=== PATIENT | female | born 1975 | race Two or more races ===

== ENCOUNTER 2018-12-07 21:59 | Inpatient (IN) | payer OTHER ==
[~2018-12-07] VITALS: Ht 162.6 cm; Wt 67.7 kg
[2018-12-07 22:05] VITALS: BP 112/92
--- NOTE | 2018-12-07 22:05 | NUR ---
ED Nurse Note: Pt arrived ED from home, c/o left chest pain today, 04/24. Pt is A/O X 4. HR 133/mint. Bp 112/92. waitng for orders.
[2018-12-07] MEDS ORDERED: TRAMADOL HCL50 MG ORAL (22:08)
[2018-12-07] MEDS ORDERED: ESTRACE1 MG ORAL (22:08)
[2018-12-07] MEDS ORDERED: Isovue-370 150ml vial INJ PRN (22:30)
[2018-12-07] MEDS ORDERED: Morphine Sulfate 4mg/ml Inj (IV USE ONLY) IVP ONE (22:30)
--- NOTE | 2018-12-07 22:35 | NUR ---
ED Nurse Note: Blood and urine sample collected and sent to Lab.
[2018-12-07 23:01] LABS: BASOPHILS % (AUTO) 0.8 % (0.0-2.0); EOSINOPHILS % (AUTO) 0.2 % (0.0-3.0); HEMOGLOBIN 14.9 G/DL (12.0-16.0); LYMPHOCYTES % (AUTO) 38.6 % (20.0-45.0); MEAN CORPUSCULAR VOLUME 90 FL (80-99); MONOCYTES % (AUTO) 3.8 % (1.0-10.0); NEUTROPHILS % (AUTO) 56.6 % (45.0-75.0); PLATELET COUNT 262 K/UL (150-450); RED BLOOD COUNT 4.87 M/UL (4.20-5.40); RED CELL DISTRIBUTION WIDTH 11.9 % (11.6-14.8); WHITE BLOOD COUNT 10.3 K/UL (4.8-10.8)
--- NOTE | 2018-12-07 23:01 | NUR ---
ED Nurse Note: Pain meds given as ordered.
[2018-12-07 23:17] LABS: ANION GAP 11 mmol/L (5-15); BLOOD UREA NITROGEN 12 mg/dL (7-18); CALCIUM 9.8 MG/DL (8.5-10.1); CARBON DIOXIDE 25 MMOL/L (21-32); CHLORIDE 105 MMOL/L (98-107); CREATININE 0.9 MG/DL (0.55-1.30); POTASSIUM 3.3 MMOL/L (3.5-5.1); SODIUM 141 MMOL/L (136-145)
[2018-12-07 23:30] LABS: ALANINE AMINOTRANSFERASE 11 U/L (12-78); ALBUMIN 3.7 G/DL (3.4-5.0); ALBUMIN/GLOBULIN RATIO 0.9 (1.0-2.7); ALKALINE PHOSPHATASE 101 U/L (46-116); ASPARTATE AMINO TRANSFERASE 14 U/L (15-37); BILIRUBIN,TOTAL 0.4 MG/DL (0.2-1.0); CKMB 1.7 NG/ML (0.0-3.6); CREATINE KINASE 67 U/L (26-308)
[2018-12-07] MEDS ORDERED: Enoxaparin 60mg Inj SUBQ ONE (23:30)
[2018-12-08] MEDS ORDERED: Heparin 25,000u/D5W 500ml 500 ML IV SCH ×3 (01:15→05:30)
[2018-12-08] MEDS ORDERED: Heparin 5000 units/ml inj IV ONE ×2 (01:15→05:00)
--- NOTE | 2018-12-08 01:25 | NUR ---
ED Nurse Note: Started Heperin drip at 12 uint /Kg /Hr( 14.152ml/hr). co-signed by charge nurse. Family at bed side.
--- NOTE | 2018-12-08 02:14 | Emergency Room Report ---
History of Present Illness General Chief Complaint: Chest Pain Source: Patient Present Illness HPI Patient presents with complaints of chest pain or short of breath Patient reports that she is on estrogen therapy Reports that several days ago she was having palpitations Patient's partner here reports that the patient has had a fast heart rate for over the past several days Tonight the pain associated with the palpitation was more significant patient also felt more short of breath and presents to the emergency room She becomes more short of breath with exertion denies any vomiting or diarrhea denies any recent travel and eyes any calf pain or swelling Allergies: Coded Allergies: No Known Allergies (Unverified , 12/07/18) Patient History Past Medical History: see triage record Pertinent Family History: none Last Menstrual Period: hysterectomy 2012 Now: No Reviewed Nursing Documentation: PMH: Agreed; PSxH: Agreed Nursing Documentation-PMH Past Medical History: No History, Except For Review of Systems All Other Systems: negative except mentioned in HPI Physical Exam Vital Signs Date Time Temp Pulse Resp B/P (MAP) Pulse Ox O2 Delivery O2 Flow Rate FiO2 12/07/18 22:03 98.1 136 18 134/91 96 Room Air Sp02 EP Interpretation: reviewed, normal General Appearance: mild distress - Mildly uncomfortable Head: normocephalic, atraumatic Eyes: bilateral eye PERRL, bilateral eye EOMI ENT: hearing grossly normal, normal pharynx Neck: supple Respiratory: lungs clear, no respiratory distress, no retraction Cardiovascular #1: tachycardia Gastrointestinal: non tender, soft Genitourinary: no CVA tenderness Musculoskeletal: normal inspection Neurologic: alert, oriented x3, responsive Skin: normal color, no rash Lymphatic: no adenopathy Procedures Critical Care Time Critical Care Time 50 minutes for multiple re-evaluations critical diagnosis including pulmonary embolism with concern for respiratory failure not including any procedural time Medical Decision Making Diagnostic Impression: Primary Impression: Pulmonary emboli ER Course Patient is a fairly complex patient with multiple differential to consideration including but not limited to cardiac cardiopulmonary and vascular emergencies Patient's blood work shows concerning findings of elevated troponin Given the patient's initial presentation history and findings I had a very high suspicion for pulmonary embolism patient was provided with Lovenox treatment dose initially CT imaging does reveal bilateral pulmonary emboli And therefore the patient is initiated on heparin and heparin drip Patient continues to saturate well on room air however is placed on oxygenation And at this time requires ICU admission Labs Test 12/07/18 22:40 12/07/18 22:47 Urine HCG, Qualitative Negative (NEGATIVE) Urine Opiates Screen Negative (NEGATIVE) Urine Barbiturates Screen Negative (NEGATIVE) Phencyclidine (PCP) Screen Negative (NEGATIVE) Urine Amphetamines Screen Negative (NEGATIVE) Urine Benzodiazepines Screen Negative (NEGATIVE) Urine Cocaine Screen Negative (NEGATIVE) Urine Marijuana (THC) Screen Positive (NEGATIVE) White Blood Count 10.3 K/UL (4.8-10.8) Red Blood Count 4.87 M/UL (4.20-5.40) Hemoglobin 14.9 G/DL (12.0-16.0) Hematocrit 44.0 % (37.0-47.0) Mean Corpuscular Volume 90 FL (80-99) Mean Corpuscular Hemoglobin 30.5 PG (27.0-31.0) Mean Corpuscular Hemoglobin Concent 33.8 G/DL (32.0-36.0) Red Cell Distribution Width 11.9 % (11.6-14.8) Platelet Count 262 K/UL (150-450) Mean Platelet Volume 6.4 FL (6.5-10.1) Neutrophils (%) (Auto) 56.6 % (45.0-75.0) Lymphocytes (%) (Auto) 38.6 % (20.0-45.0) Monocytes (%) (Auto) 3.8 % (1.0-10.0) Eosinophils (%) (Auto) 0.2 % (0.0-3.0) Basophils (%) (Auto) 0.8 % (0.0-2.0) Prothrombin Time 10.9 SEC (9.30-11.50) Prothromb Time International Ratio 1.0 (0.9-1.1) Activated Partial Thromboplast Time 27 SEC (23-33) D-Dimer 18.87 mg/L FEU (0.00-0.49) Sodium Level 141 MMOL/L (136-145) Potassium Level 3.3 MMOL/L (3.5-5.1) Chloride Level 105 MMOL/L (98-107) Carbon Dioxide Level 25 MMOL/L (21-32) Anion Gap 11 mmol/L (5-15) Blood Urea Nitrogen 12 mg/dL (7-18) Creatinine 0.9 MG/DL (0.55-1.30) Estimat Glomerular Filtration Rate > 60 mL/min (>60) Glucose Level 125 MG/DL (74-106) Calcium Level 9.8 MG/DL (8.5-10.1) Total Bilirubin 0.4 MG/DL (0.2-1.0) Aspartate Amino Transf (AST/SGOT) 14 U/L (15-37) Alanine Aminotransferase (ALT/SGPT) 11 U/L (12-78) Alkaline Phosphatase 101 U/L (46-116) Total Creatine Kinase 67 U/L (26-308) Creatine Kinase MB 1.7 NG/ML (0.0-3.6) Creatine Kinase MB Relative Index 2.5 Troponin I 0.512 ng/mL (0.000-0.056) Pro-B-Type Natriuretic Peptide 56 pg/mL (0-125) Total Protein 7.8 G/DL (6.4-8.2) Albumin 3.7 G/DL (3.4-5.0) Globulin 4.1 g/dL Albumin/Globulin Ratio 0.9 (1.0-2.7) Lipase 130 U/L (73-393) EKG Diagnostic Results Rate: tachycardiac Rhythm: other ST Segments: no acute changes Rhythm Strip Diag. Results EP Interpretation: yes Rate: 110 Rhythm: no PVC's, no ectopy, other - Sinus tach Chest X-Ray Diagnostic Results Chest X-Ray Diagnostic Results : Chest X-Ray Ordered: Yes # of Views/Limited/Complete: 1 View Indication: Chest Pain EP Interpretation: Yes Interpretation: no consolidation, no effusion, no pneumothorax Impression: No acute disease Electronically Signed by: Wu Fletcher DO CT/MRI/US Diagnostic Results CT/MRI/US Diagnostic Results : Impression CTA chest: Multifocal acute pulmonary emboli lodged within the proximal lobar and segmental pulmonary arteries no evidence of heart strain Last Vital Signs Date Time Temp Pulse Resp B/P (MAP) Pulse Ox O2 Delivery O2 Flow Rate FiO2 12/07/18 22:05 98.1 132 18 112/92 98 Room Air Status: improved Disposition: ADMITTED INPATIENT Condition: Critical Referrals: NON PHYSICIAN (PCP) Wu Fletcher DO Dec 08, 2018 02:14
--- NOTE | 2018-12-08 03:00 | NUR ---
NURSE NOTES: Patient received from ROLL REPAIRER. Patient is alert and oriented to date, time, purpose and place. Patient is ambulatory bit on bedrest for now. Patient has been started on a heparin gtt in ER at 12 unit/kg/hr. Patients HR 112 ST, 112/79, Spo2 97$ while on 2 L NC and is afebrile. Patient does state minor chest pain of 4/10 but tolerable at the moment. R AC 20G, L hand 20G and on heparin gtt. No respiratory distress at this time. Patient was educated for signs and symptoms, possible outcomes, and plan of care. Will continue to monitor.
--- NOTE | 2018-12-08 03:15 | NUR ---
TRANSFER TO FLOOR: Patient transferred to ICU/246-[id number] as ordered . Report given to Yair/RN, Charge. Belongings sent with Pt and rechecked with RN. Pt is A/O X 4.
--- NOTE | 2018-12-08 04:00 | NUR ---
NURSE NOTES: Primary MD called to provide admissions orders. Patient remains stable, awake and oriented. Vitals stable. NAD, no respiratory distress,.
[2018-12-08] MEDS ORDERED: Morphine Sulfate 2mg/ml Inj(IV/IM USE ONLY) IVP PRN (04:30)
[2018-12-08] MEDS ORDERED: Docusate 100mg cap ORAL PRN (05:00)
--- NOTE | 2018-12-08 06:00 | NUR ---
NURSE NOTES: Patients vitals remains stable, currently sleeping. No respiratory distress observed. Awaiting PTT results.
[2018-12-08 06:25] LABS: BASOPHILS % (AUTO) 1.5 % (0.0-2.0); EOSINOPHILS % (AUTO) 0.4 % (0.0-3.0); HEMATOCRIT 40.3 % (37.0-47.0); HEMOGLOBIN 13.5 G/DL (12.0-16.0); LYMPHOCYTES % (AUTO) 44.7 % (20.0-45.0); MEAN CORPUSCULAR VOLUME 92 FL (80-99); MONOCYTES % (AUTO) 4.1 % (1.0-10.0); NEUTROPHILS % (AUTO) 49.3 % (45.0-75.0); PLATELET COUNT 236 K/UL (150-450); RED CELL DISTRIBUTION WIDTH 12.2 % (11.6-14.8); WHITE BLOOD COUNT 10.3 K/UL (4.8-10.8)
[2018-12-08 06:55] LABS: ALANINE AMINOTRANSFERASE 10 U/L (12-78); ALBUMIN 3.3 G/DL (3.4-5.0); ALBUMIN/GLOBULIN RATIO 0.9 (1.0-2.7); ALKALINE PHOSPHATASE 93 U/L (46-116); ANION GAP 12 mmol/L (5-15); ASPARTATE AMINO TRANSFERASE 14 U/L (15-37); BILIRUBIN,TOTAL 0.3 MG/DL (0.2-1.0); BLOOD UREA NITROGEN 11 mg/dL (7-18); CALCIUM 9.1 MG/DL (8.5-10.1); CARBON DIOXIDE 25 MMOL/L (21-32); CHLORIDE 104 MMOL/L (98-107); CREATININE 0.8 MG/DL (0.55-1.30); POTASSIUM 3.5 MMOL/L (3.5-5.1); SODIUM 141 MMOL/L (136-145)
--- NOTE | 2018-12-08 07:15 | NUR ---
NURSE NOTES: RECEIVED PATIENT FROM Eamon FAITH RN. PATIENT IS LYING IN BED, AWAKE, ALERT AND ORIENTED. COMPLAINTS OF PAIN. HOOKED TO WET MACHINE CUTTER. ON 2L NC. NO SIGN OF RESPI OR CARDIO DISTRESS OF THE MOMENT. IVS ON L AC G20 AND L HAND G20 WITH HEPARIN DRIP AT 12"U'/KG/HR FOLLOWING HOSPITAL PROTOCOL. TIMED APTT IN AM 0400. CALL LIGHT WITHIN REACH. BED AT LOWEST POSITION. SIDE RAILS UP. WILL CONTINUE TO MONITOR.
--- NOTE | 2018-12-08 09:15 | NUR ---
NURSE NOTES: STILL ON HEPARIN DRIP AT 12"U"/KG/HR FOLLOWING HOSPITAL PROTOCOL. FAMILY MEMBER SEEN AT THE BEDSIDE. NO SIGNS OF DISTRESS. WILL CONTINUE TO MONITOR.
[2018-12-08] MEDS: Morphine Sulfate 4mg/ml Inj (IV USE ONLY) IVP PRN ×2 (09:16→18:37)
--- NOTE | 2018-12-08 11:00 | NUR ---
NURSE NOTES: SEEN AND EXAMINED BY DR SCHMIDT WITH NEW ORDER. NO SIGNS OF DISTRESS. WILL CONTINUE TO MONITOR.
--- NOTE | 2018-12-08 11:12 | History & Physical ---
History and Physical History & Physicial HP dictated # [id number] Berto Abraham MD Dec 08, 2018 11:12
--- NOTE | 2018-12-08 12:05 | NUR ---
NURSE NOTES: Patient is comfortably talking with two visitors and is eating lunch. Patient stated pain is at 3 out of 10. No pain medication requested. Bed at its lowest position and call light within reach. Will continue to monitor.
--- NOTE | 2018-12-08 14:00 | NUR ---
NURSE NOTES: Patient has two visitors and is comfortable at this time. Will continue to monitor.
--- NOTE | 2018-12-08 14:27 | Pulmonolgy Critical Care Note ---
Critical Care - Asmt/Plan Assessment/Plan: Pulmonary CCM Consultation HP Patient is a 43 year old woman who presents complaining of chest pain and short of breath Patient reports that she is on estrogen therapy She has had palpitations intermittently for several days. On the day of admission her chest pain was associated with the palpitations was more significant and she felt more short of breath She becomes more short of breath with exertion, denies any vomiting or diarrhea denies any recent travel denies any calf pain or swelling Allergies: No Known Allergies Past Medical History: negative aside from above Past Surgical History: hysterectomy 2011 All Other Systems: negative except mentioned in HPI Physical Exam Vital Signs noted Date Time Temp Pulse Resp B/P (MAP) Pulse Ox O2 Delivery O2 Flow Rate FiO2 12/07/18 22:03 98.1 136 18 134/91 96 Room Air General Appearance: mild distress - Mildly uncomfortable Head: normocephalic, atraumatic Eyes: bilateral eye PERRL, bilateral eye EOMI ENT: hearing grossly normal, normal pharynx Neck: supple Respiratory: lungs clear, no respiratory distress, no retraction Cardiovascular: HS1, HS2, RRR, tachycardia Gastrointestinal: non tender, soft Genitourinary: no CVA tenderness Musculoskeletal: normal inspection Neurologic: alert, oriented x3, responsive Skin: normal color, no rash Lymphatic: no adenopathy Impression: Pulmonary emboli Elevated Troponin Previous Hysterectomy Plan: Admit ICU Anticoagulation O2 PRN Trend labs Echocardiogram BNP Labs Test 12/07/18 22:40 12/07/18 22:47 Urine HCG, Qualitative Negative (NEGATIVE) Urine Opiates Screen Negative (NEGATIVE) Urine Barbiturates Screen Negative (NEGATIVE) Phencyclidine (PCP) Screen Negative (NEGATIVE) Urine Amphetamines Screen Negative (NEGATIVE) Urine Benzodiazepines Screen Negative (NEGATIVE) Urine Cocaine Screen Negative (NEGATIVE) Urine Marijuana (THC) Screen Positive (NEGATIVE) White Blood Count 10.3 K/UL (4.8-10.8) Red Blood Count 4.87 M/UL (4.20-5.40) Hemoglobin 14.9 G/DL (12.0-16.0) Hematocrit 44.0 % (37.0-47.0) Mean Corpuscular Volume 90 FL (80-99) Mean Corpuscular Hemoglobin 30.5 PG (27.0-31.0) Mean Corpuscular Hemoglobin Concent 33.8 G/DL (32.0-36.0) Red Cell Distribution Width 11.9 % (11.6-14.8) Platelet Count 262 K/UL (150-450) Mean Platelet Volume 6.4 FL (6.5-10.1) Neutrophils (%) (Auto) 56.6 % (45.0-75.0) Lymphocytes (%) (Auto) 38.6 % (20.0-45.0) Monocytes (%) (Auto) 3.8 % (1.0-10.0) Eosinophils (%) (Auto) 0.2 % (0.0-3.0) Basophils (%) (Auto) 0.8 % (0.0-2.0) Prothrombin Time 10.9 SEC (9.30-11.50) Prothromb Time International Ratio 1.0 (0.9-1.1) Activated Partial Thromboplast Time 27 SEC (23-33) D-Dimer 18.87 mg/L FEU (0.00-0.49) Sodium Level 141 MMOL/L (136-145) Potassium Level 3.3 MMOL/L (3.5-5.1) Chloride Level 105 MMOL/L (98-107) Carbon Dioxide Level 25 MMOL/L (21-32) Anion Gap 11 mmol/L (5-15) Blood Urea Nitrogen 12 mg/dL (7-18) Creatinine 0.9 MG/DL (0.55-1.30) Estimat Glomerular Filtration Rate > 60 mL/min (>60) Glucose Level 125 MG/DL (74-106) Calcium Level 9.8 MG/DL (8.5-10.1) Total Bilirubin 0.4 MG/DL (0.2-1.0) Aspartate Amino Transf (AST/SGOT) 14 U/L (15-37) Alanine Aminotransferase (ALT/SGPT) 11 U/L (12-78) Alkaline Phosphatase 101 U/L (46-116) Total Creatine Kinase 67 U/L (26-308) Creatine Kinase MB 1.7 NG/ML (0.0-3.6) Creatine Kinase MB Relative Index 2.5 Troponin I 0.512 ng/mL (0.000-0.056) Pro-B-Type Natriuretic Peptide 56 pg/mL (0-125) Total Protein 7.8 G/DL (6.4-8.2) Albumin 3.7 G/DL (3.4-5.0) Globulin 4.1 g/dL Albumin/Globulin Ratio 0.9 (1.0-2.7) Lipase 130 U/L (73-393) EKG: Rate: tachycardiac Rhythm: other ST Segments: no acute changes Chest X-Ray: no consolidation, no effusion, no pneumothorax CTA Chest: Multifocal acute pulmonary emboli lodged within the proximal lobar and segmental pulmonary arteries no evidence of heart strain Critical Care - Objective Last 24 Hour Vital Signs Date Time Temp Pulse Resp B/P (MAP) Pulse Ox O2 Delivery O2 Flow Rate FiO2 12/08/18 12:00 Nasal Cannula 2.0 12/08/18 08:00 Nasal Cannula 2.0 12/08/18 08:00 98 12/08/18 04:00 2.0 12/08/18 04:00 Nasal Cannula 2.0 12/08/18 04:00 103 12/08/18 03:26 Nasal Cannula 2.0 12/08/18 03:15 98.1 112 18 113/89 98 Nasal Cannula 2.0 12/07/18 22:05 98.1 132 18 112/92 98 Room Air 12/07/18 22:05 133 18 Room Air 12/07/18 22:03 98.1 136 18 134/91 96 Room Air Critical Care - Subjective ROS Limited/Unobtainable: No Condition: stable IV Access: peripheral EKG Rhythm: Sinus Rhythm I&O: Intake and Output 12/07/18 12/08/18 19:00 07:00 Intake Total 1092.340 ml Balance 1092.340 ml Intake Oral 550 ml IV Total 542.340 ml # Voids 2 Jose Raul Jones MD Dec 08, 2018 14:27
--- NOTE | 2018-12-08 16:05 | NUR ---
*-* INSURANCE *-* CLINICALS HAVE BEEN FAXED TO: [facility] PLEASE FAX THE REVIEW/CLINICAL FX: [phone]
--- NOTE | 2018-12-08 16:06 | NUR ---
NURSE NOTES: Patient states pain is at a 7 out of 10. Medication will be given as ordered. Will monitor.
--- NOTE | 2018-12-08 16:19 | NUR ---
CASE MANAGEMENT:REVIEW 43 YR OLD FEMALE PRESENTED TO ER CC: CHEST PAIN RADIATING TO BACK SI: ACUTE BILATERAL PULMONARY EMBOLI 98.0 136 18 134/91 96% ON RA TROPONIN(+) 0.512 D-DIMER+18.87 IS:500CC NS BOLUS IV MORPHINE X1 IV ZOFRAN X1 LOVENOX X1 HEPARIN GTT CTA CHEST CXR : TO ICU INTERQUAL CRITERIA MET
--- NOTE | 2018-12-08 18:15 | History and Physical Report ---
DATE OF ADMISSION: 12/08/2018 CHIEF COMPLAINT: Chest pain, shortness of breath, and palpitations. HISTORY OF PRESENT ILLNESS: This is a 43-year-old very pleasant female. She started having chest pains and palpitations about 4 days ago, this was associated also with shortness of breath. The symptoms would come and go and the patient will usually have it a few times a day. Yesterday, she was at her girlfriend's house when she started having severe chest pain and palpitations. She had a watch, which checks her pulse and it was in 150s. She was also very short of breath. Eventually, she was given here by the girlfriend to [facility] and had a CT scan of chest, reportedly it showed bilateral pulmonary emboli. The patient was started on IV heparin and was admitted to intensive care unit. Currently, the patient is feeling better. PAST MEDICAL HISTORY: Includes history of hysterectomy, but also the patient had ovaries removed and I am not sure what the reason was, but since then, she has been taking hormones. She had also craniotomy for malformation and also recent shoulder surgery. SOCIAL HISTORY: The patient is homosexual and has no sexual activity except with her girlfriend. She used to smoke half-a-pack a day for many years, but for the past year and half, she is using nicotine vapors. No history of alcohol abuse. She lives in a monogamous relationship with her girlfriend. ALLERGIES: No known drug allergies. REVIEW OF SYSTEMS: As above. PHYSICAL EXAMINATION: GENERAL: The patient is a pleasant female, in no acute distress. VITAL SIGNS: Blood pressure is 113/89, pulse is 112, respiratory 18, and temperature 98.1. HEENT: [place] conjunctivae. Anicteric sclerae. NECK: Supple. LUNGS: Clear to auscultation. HEART: S1, S2 without murmurs or rubs. ABDOMEN: Soft and nontender. EXTREMITIES: No cyanosis or edema. LABORATORY FINDINGS: [place] [address], hematocrit 40.3, hemoglobin is 13.5, and platelets 236,000. The chemistry panel shows a serum sodium of 141, potassium 3.5, chloride 104, BUN is 11, creatinine is 0.8. Troponin initially is 0.51 and the repeat is 0.348. ASSESSMENT: This is a 43-year-old female who was admitted with chest pain, shortness of breath, palpitations, and diagnosis of pulmonary embolism. She has slightly elevated troponin. At this time, I doubt that she has underlying coronary artery disease, but she is a smoker, so that needs to be ruled out as well. PLAN: The patient was started on IV heparin, this will be continued. The patient will be seen by Dr. Lorenzo in Pulmonary consultation and Dr. House for Cardiology. Eventually, she will need to be on oral medication after oral anticoagulants. Case was discussed with the patient extensively regarding the cause, the treatment, and prognosis and also talked to the RN. The patient will have ultrasound of lower extremities to rule out DVT in legs. Berto Abraham M.D. DR: KEVIN JOB#: [id number] CC:
--- NOTE | 2018-12-08 19:15 | Diagnostic Imaging Report ---
Indication: Chest pain Technique: Continuous helical transaxial imaging of the chest was obtained from the thoracic inlet to the upper abdomen during rapid intravenous contrast administration. Arterial phase of enhancement obtained. Coronal 2-D reformats were also obtained and maximum intensity projection images in multiple planes. Study obtained in a Siemens sensation [address] Automatic Exposure Control was utilized. Total Dose length Product (DLP): [address] Dose Index Volume (CTDIvol): 12.6, 88.4, 17.3 mGy Comparison: None Findings: There is good opacification of the pulmonary artery. There are multiple filling defects present within branches of the pulmonary artery. On the left side there is a saddle embolus within the main pulmonary artery trunk extending into both upper and lower lobe branches and some of the segmental branches. On the right similarly there is a clot within the lower lobe branch extending into segmental branches. There is also embolus extending into the upper lobe branch on the right. There is no evidence of right heart enlargement or strain. There is no reflux contrast into the IVC. The aorta appears normal. The lungs are clear. The visualized part of the upper abdomen shows a subcutaneous port which is within the peritoneal cavity anteriorly. The nature of this is not known. IMPRESSION: Extensive bilateral pulmonary emboli. No CT evidence of right heart strain. [facility] has communicated the preliminary results to the Emergency Department at 01:06, 12/07/18. Their findings are largely concordant with this report. Critical value communication The CT scanner at [facility] is accredited by the [employer] and the scans are performed using dose optimization techniques as appropriate to a performed exam including Automatic Exposure control.
--- NOTE | 2018-12-08 19:15 | Diagnostic Imaging Report ---
Indication: Dyspnea Comparison: None A single view chest radiograph was obtained. Findings: Cardiomediastinal appearance is within normal limits for age. FIRMWARE ARCHITECT shunt noted and projected over the right side of the chest. The lungs are clear. Pulmonary vascularity is appropriate. The diaphragmatic contour is smooth and costophrenic angles are sharp. No pleural effusions are identified. The bones are unremarkable. Impression: No acute findings
--- NOTE | 2018-12-08 19:16 | Diagnostic Imaging Report ---
APPROVED REPORT CPT Code: 03660 Past History Pulmonary Embolism BILATERAL: Imaging reveals a patent deep venous system bilaterally. There is no evidence of thrombus within the common femoral, superficial femoral, popliteal or tibial segments. The greater saphenous veins are within normal limits. Doppler indicates normal spontaneous flow within these segments.
--- NOTE | 2018-12-08 19:17 | Cardiology Report ---
APPROVED REPORT EKG Measurement Heart [id number] Sinus tachycardia Nonspecific T wave abnormality Abnormal ECG
--- NOTE | 2018-12-08 20:00 | NUR ---
NURSE NOTES: RECEIVED PATIENT FROM DELIA RUTHERFORD RN. PATIENT IS LYING IN BED, AWAKE, ALERT AND ORIENTED. COMPLAINTS OF PAIN. HOOKED TO MACHINERY RIGGER. ON 2L NC. NO SIGN OF RESPI OR CARDIO DISTRESS OF THE MOMENT. IVS ON L AC G20 AND L HAND G20 WITH HEPARIN DRIP AT 12"U'/KG/HR FOLLOWING HOSPITAL PROTOCOL. TIMED APTT IN AM 0400. CALL LIGHT WITHIN REACH. BED AT LOWEST POSITION. SIDE RAILS UP. WILL CONTINUE TO MONITOR.
--- NOTE | 2018-12-08 20:54 | NUR ---
NURSE NOTES: Called and left message for Dr. Abraham for prn order for zofran. Pt feeling dizziness and nausea, placed back on 02. Current O2 saturation @ 99%
--- NOTE | 2018-12-08 22:00 | NUR ---
NURSE NOTES: STILL ON HEPARIN DRIP AT 12"U"/KG/HR FOLLOWING HOSPITAL PROTOCOL. FAMILY MEMBER SEEN AT THE BEDSIDE. NO SIGNS OF DISTRESS. WILL CONTINUE TO MONITOR. PATIENT VOMITING, FEELS NAUSEATED ZOFRAN ALREADY GIVEN. PATIENT DOES REMAINS AWAKE AND ALERT.
[2018-12-09] VITALS (17 sets, daily range): BP systolic 90–131; BP diastolic 53–83
--- NOTE | 2018-12-09 | NUR ---
NURSE NOTES: PATIENT REMAINS ALERT AND ORIENTED, NO RESPIRATORY DISTRESS NOTED. PATIENT STATED CHEST PAIN RATED AT 2/10, STATES THAT SHE CAN HOLD OFF WITH PAIN MEDICATIONS FOR NOW PAIN IS TOLERABLE.
--- NOTE | 2018-12-09 04:00 | NUR ---
NURSE NOTES: Received pt and report from TOMEKA Lehman. Pt's resting in bed, alert x4. Denies any other concerns/complaints at this time. Heparin running at 12units/kg/hr, pending PTT. Will continue to monitor.
[2018-12-09] MEDS ORDERED: Heparin 5000 units/ml inj IV ONE (05:30)
--- NOTE | 2018-12-09 05:30 | NUR ---
NURSE NOTES: PharmD called, Heparin rate increased to 16unit/kg/hr, and 5000units bolus. Will repeat PTT in 6 hrs. Pt's resting in bed comfortably, no s/s bleeding. Will continue to monitor.
[2018-12-09] MEDS: Heparin 25,000u/D5W 500ml 500 ML IV SCH ×2 (05:35→11:30)
--- NOTE | 2018-12-09 07:13 | NUR ---
HAND-OFF: Report given to TOMEKA Joaquin.
--- NOTE | 2018-12-09 07:30 | NUR ---
NURSE NOTES: Received the patient from TOMEKA Daniel. Patient is awake, aox4, resting in bed. Denies SOB, or pain at this time. On 2L O2 via NC, O2 sat 99%. No acute distress noted. SR noted on the monitor. Left hand 20G and Right AC 20G IV intact and patent, running heparin drip at 16 units/kg/hr. No s/sx of active bleeding. Bed in lowest position, locked, side rails upx2. Call light within reach. Will continue to monitor.
--- NOTE | 2018-12-09 08:15 | NUR ---
CASE MANAGEMENT:REVIEW 12/09/18 SI: EXTENSIVE ACUTE BILATERAL PULMONARY EMBOLI 98.1 112 18 113/89 98% ON 2L/NC TROPONIN(+) 0.058 APT+46 IS: HEPARIN GTT 16U/KG/HR PROTONIX PO Q12 IV MORPHINE Q3HRS PRN : ICU STATUS
--- NOTE | 2018-12-09 09:10 | NUR ---
NURSE NOTES: Patient had breakfast in bed. 2D echo ongoing.
--- NOTE | 2018-12-09 11:30 | NUR ---
NURSE NOTES: Patient on heparin drip at 16 units/kg/hr, no s/sx of bleeding noted. PTT drawn, pending result.
--- NOTE | 2018-12-09 12:25 | Pulmonolgy Critical Care Note ---
Critical Care - Asmt/Plan Problems: (1) Pulmonary emboli Assessment/Plan: ASSESSMENT: B PE, likely provoked 2/2 recent shoulder surgery (3 wks prior) + OCP usage H/O endometriosis S/P JAXSON-BSO Chiari malformation S/P VPS Recent shoulder surgery PLAN: D/C IVUH Start Xarelto 15 PO BID x 21 days, then 20 PO qDaily Will need outpatient heme F/U, anticipate @ least 3-6 months or A/C Hold off on Hypercoag w/u for now Monitor HH Should have age appropriate malignancy eval Transfer to floor/tele D/W RN and GF Time Spent (Minutes): 30 Notes Reviewed: appraiser art, renal Discussed with: nurses Critical Care - Objective Last 24 Hour Vital Signs Date Time Temp Pulse Resp B/P (MAP) Pulse Ox O2 Delivery O2 Flow Rate FiO2 12/09/18 12:00 97.9 80 14 99/65 (76) 99 12/09/18 12:00 Nasal Cannula 2.0 12/09/18 11:00 88 12 98/53 (68) 100 12/09/18 10:00 81 12 97/61 (73) 99 12/09/18 09:00 81 17 103/69 (80) 99 12/09/18 08:00 68 12/09/18 08:00 Nasal Cannula 2.0 12/09/18 08:00 97.8 60 13 131/83 (99) 100 12/09/18 07:00 68 12 129/64 (85) 98 12/09/18 06:48 Nasal Cannula 2.0 28 12/09/18 06:48 100 Nasal Cannula 2.0 28 12/09/18 04:00 75 12/09/18 04:00 Room Air 12/09/18 00:00 Room Air 12/08/18 20:00 89 12/08/18 20:00 Room Air 12/08/18 16:00 Room Air 12/08/18 16:00 87 Status: awake Condition: improving HEENT: atraumatic, normocephalic Lungs: clear Heart: HR/BP stable Abdomen: soft, non-tender, active bowel sounds Extremities: no C/C/E Blood Sugars: BS controlled Critical Care - Subjective ROS Limited/Unobtainable: Yes ICU Day: 3 Interval Events: Raul AC No CP, no SOB, no FC On RA, HR < 100 TTE without RV strain duplex neg Condition: stable IV Access: peripheral EKG Rhythm: Sinus Rhythm FI02: 28 I&O: Intake and Output 12/08/18 12/09/18 19:00 07:00 Intake Total 485.496 ml 677.762 ml Output Total 300 ml Balance 485.496 ml 377.762 ml Intake Oral 300 ml 500 ml IV Total 185.496 ml 177.762 ml Output Urine Total 300 ml # Voids 2 1 Labs: Laboratory Tests Test 12/08/18 14:40 12/09/18 03:50 12/09/18 11:30 Troponin I 0.100 ng/mL (0.000-0.056) 0.058 ng/mL (0.000-0.056) Activated Partial Thromboplast Time 46 SEC (23-33) H 115 SEC (23-33) H Pro-B-Type Natriuretic Peptide 166 pg/mL (0-125) H Ken Lorenzo MD Dec 09, 2018 12:25
--- NOTE | 2018-12-09 12:45 | NUR ---
NURSE NOTES: Dr. Lorenzo at bedside, patient resting in bed. No distress noted. Off heparin drip, start on xeralto. Okay to transfer to tele per Dr. Lorenzo. Patient's mom at bedside. All questions answered
--- NOTE | 2018-12-09 13:15 | NUR ---
NURSE NOTES: Patient having lunch in bed. heparin drip off. On room air. vss
--- NOTE | 2018-12-09 13:49 | NUR ---
*-* INSURANCE *-* CLINICALS HAVE BEEN FAXED TO: [facility] PLEASE FAX THE REVIEW/CLINICAL FX: [phone]
--- NOTE | 2018-12-09 14:20 | General Progress Note ---
Assessment/Plan Problem List: (1) Pulmonary emboli ICD Codes: I26.99 - Other pulmonary embolism without acute cor pulmonale SNOMED: 76150706 (2) Chest pain ICD Codes: R07.9 - Chest pain, unspecified SNOMED: 42374647 (3) Elevated troponin ICD Codes: R74.8 - Abnormal levels of other serum enzymes SNOMED: 035998929, 213906562, 907167214 Assessment/Plan switch to Eliquis Out of ICU pain meds Discussed with dr Lorenzo Subjective Allergies: Coded Allergies: No Known Allergies (Unverified , 12/07/18) Subjective still with CP Objective Last 24 Hour Vital Signs Date Time Temp Pulse Resp B/P (MAP) Pulse Ox O2 Delivery O2 Flow Rate FiO2 12/09/18 13:00 85 18 101/71 (81) 97 12/09/18 12:00 97.9 80 14 99/65 (76) 99 12/09/18 12:00 Nasal Cannula 2.0 12/09/18 11:00 88 12 98/53 (68) 100 12/09/18 10:00 81 12 97/61 (73) 99 12/09/18 09:00 81 17 103/69 (80) 99 12/09/18 08:00 68 12/09/18 08:00 Nasal Cannula 2.0 12/09/18 08:00 97.8 60 13 131/83 (99) 100 12/09/18 07:00 68 12 129/64 (85) 98 12/09/18 06:48 Nasal Cannula 2.0 28 12/09/18 06:48 100 Nasal Cannula 2.0 28 12/09/18 04:00 75 12/09/18 04:00 Room Air 12/09/18 00:00 Room Air 12/08/18 20:00 89 12/08/18 20:00 Room Air 12/08/18 16:00 Room Air 12/08/18 16:00 87 Intake and Output 12/08/18 12/09/18 19:00 07:00 Intake Total 485.496 ml 677.762 ml Output Total 300 ml Balance 485.496 ml 377.762 ml Intake Oral 300 ml 500 ml IV Total 185.496 ml 177.762 ml Output Urine Total 300 ml # Voids 2 1 Laboratory Tests 12/08/18 14:40: Troponin I 0.100H 12/09/18 03:50: Troponin I 0.058H, Activated Partial Thromboplast Time 46H, Pro-B-Type Natriuretic Peptide 166H 12/09/18 11:30: Activated Partial Thromboplast Time 115H Height (Feet): 5 Height (Inches): 4.00 Weight (Pounds): 141 Cardiovascular: normal rate Respiratory/Chest: lungs clear Berto Abraham MD Dec 09, 2018 14:20
[2018-12-09] MEDS: Eliquis 2.5mg tablet ORAL SCH ×2 (14:25→21:18)
--- NOTE | 2018-12-09 14:37 | Cardiology Report ---
APPROVED REPORT EXAM: Two-dimensional and M-mode echocardiogram with Doppler and color Doppler. INDICATION Shortness of breath M-Mode DIMENSIONS IVSd1.2 (0.7-1.1cm)Left Atrium (MM)2.6 (1.6-4.0cm) LVDd4.0 (3.5-5.6cm)Aortic Root2.0 (2.0-3.7cm) PWd0.8 (0.7-1.1cm)Aortic Cusp Exc.1.8 (1.5-2.0cm) LVDs2.7 (2.5-4.0cm) PWs1.2 cm Normal left ventricular chamber size, systolic function and wall motion. Left ventricular ejection fraction estimated to be 60 %. Mild left ventricular hypertrophy. No evidence of pericardial effusion. All other cardiac chamber sizes are within normal limits. Normal appearing aortic, mitral, pulmonic and tricuspid valves. Mild mitral annulus and aortic root calcification. IVC is normal in size with physiological collapse. A color flow and spectral Doppler study was performed and revealed: No aortic insufficiency. No mitral regurgitation. Normal left ventricular diastolic function. Trace tricuspid regurgitation. Tricuspid systolic velocities suggests peak right ventricular systolic pressure of 11 mmHg. Trace pulmonic regurgitation present.
--- NOTE | 2018-12-09 15:30 | NUR ---
NURSE NOTES: Patient resting in bed comfortably. no acute distress noted.
--- NOTE | 2018-12-09 17:30 | NUR ---
NURSE NOTES: sponge bath given. Patient awake. Denies SOB or pain at this time. VSS.
[2018-12-09] MEDS ORDERED: Xarelto 15mg tab ORAL SCH (18:00)
--- NOTE | 2018-12-09 19:06 | NUR ---
HAND-OFF: Report given to TOMEKA Lehman.
--- NOTE | 2018-12-09 20:00 | NUR ---
NURSE NOTES: Received the patient from TOMEKA Knight. Patient is awake, aox4, resting in bed. Denies SOB, or pain at this time. On 2L O2 via NC, O2 sat 99%. No acute distress noted. SR noted on the monitor. Left hand 20G and Right AC 20G IV intact and patent, is saline locked. No s/sx of active bleeding. Bed in lowest position, locked, side rails upx2. Call light within reach. Will continue to monitor.
--- NOTE | 2018-12-09 21:08 | Cardiology Progress Note ---
Subjective Subjective [id number] Objective Last 24 Hour Vital Signs Date Time Temp Pulse Resp B/P (MAP) Pulse Ox O2 Delivery O2 Flow Rate FiO2 12/09/18 20:00 Room Air 12/09/18 20:00 89 12/09/18 20:00 98.7 81 18 90/59 (69) 98 12/09/18 19:00 99 17 100/63 (75) 97 12/09/18 18:00 86 20 94/57 (69) 96 12/09/18 17:00 98 21 95/67 (76) 97 12/09/18 16:00 Room Air 12/09/18 16:00 102 12/09/18 16:00 98.1 80 19 110/74 (86) 100 12/09/18 15:00 92 18 106/55 (72) 98 12/09/18 14:00 107 25 99/59 (72) 95 12/09/18 13:00 85 18 101/71 (81) 97 12/09/18 12:00 97.9 80 14 99/65 (76) 99 12/09/18 12:00 Nasal Cannula 2.0 12/09/18 12:00 83 12/09/18 11:00 88 12 98/53 (68) 100 12/09/18 10:00 81 12 97/61 (73) 99 12/09/18 09:00 81 17 103/69 (80) 99 12/09/18 08:00 68 12/09/18 08:00 Nasal Cannula 2.0 12/09/18 08:00 97.8 60 13 131/83 (99) 100 12/09/18 07:00 68 12 129/64 (85) 98 12/09/18 06:48 Nasal Cannula 2.0 28 12/09/18 06:48 100 Nasal Cannula 2.0 28 12/09/18 04:00 75 12/09/18 04:00 Room Air 12/09/18 00:00 Room Air Intake and Output 12/08/18 12/09/18 19:00 07:00 Intake Total 485.496 ml 677.762 ml Output Total 300 ml Balance 485.496 ml 377.762 ml Intake Oral 300 ml 500 ml IV Total 185.496 ml 177.762 ml Output Urine Total 300 ml # Voids 2 1 Laboratory Tests Test 12/09/18 03:50 12/09/18 11:30 Activated Partial Thromboplast Time 46 SEC (23-33) H 115 SEC (23-33) H Troponin I 0.058 ng/mL (0.000-0.056) Pro-B-Type Natriuretic Peptide 166 pg/mL (0-125) H Sherman House MD Dec 09, 2018 21:08
[2018-12-09] MEDS: Morphine Sulfate 4mg/ml Inj (IV USE ONLY) IVP PRN (21:18)
--- NOTE | 2018-12-09 22:00 | NUR ---
NURSE NOTES: Dr. House at bedside assessing patient. Patient remains stable at this time. NAD.
[2018-12-10] VITALS (11 sets, daily range): BP systolic 101–125; BP diastolic 63–76
--- NOTE | 2018-12-10 | NUR ---
NURSE NOTES: Patient remains stable, VSS, no new changes.
--- NOTE | 2018-12-10 02:00 | NUR ---
NURSE NOTES: Patient remains sleeping, VS remains stable, NAD, no chest pain right now.
--- NOTE | 2018-12-10 04:00 | NUR ---
NURSE NOTES: Patient remains sleeping, VS remains stable. No complaints of SOB or chest pain. IV lines remains patent and intact.
--- NOTE | 2018-12-10 04:00 | Consultation ---
DATE OF CONSULTATION: 12/09/2018 CARDIOLOGY CONSULTATION CONSULTING PHYSICIAN: Sherman House M.D. REFERRING PHYSICIAN: Berto Abraham M.D. REASON FOR REFERRAL: Tachycardia. HISTORY OF PRESENT ILLNESS: This is a pleasant 43-year-old female who has a history of multiple medical problems as delineated below who had some shortness of breath for about 3 or 4 weeks. About 2 weeks ago, she underwent shoulder surgery and spent some time in bed for 4 to 5 days, although she was not in the bed all time, at times she would get out of bed. Nevertheless, over the past three weeks, she has had increasing episodes of shortness of breath and has had occasional chest pain, but she never really paid attention. On one occasion, she had woken up in the middle of the night with palpitations and shortness of breath. The heart rate was noted to be 150. Anyway, she eventually came to the hospital because of persistent symptoms and was diagnosed with bilateral pulmonary embolism with heart rates and with tachycardia. So, this consultation is requested. Except for the fact that she has been in bed for the past 4 to 5 days, she has had estrogen usage for the past year and a half for having had hysterectomy. Otherwise, no significant other risk factors. Chest pain apparently is better right now. Shortness of breath is better, almost completely gone. She does not have any orthopnea. She did have PND episodes. No dizziness or lightheadedness she has palpitation as noted. PAST MEDICAL HISTORY: 1. Positive for history of keloid malformation, status post PHOTOGRAPHER LITHOGRAPHIC shunting. 2. History of multiple . SOCIAL HISTORY: She does until a few days before her admission and she drinks alcoholic beverages socially. No other drug use. REVIEW OF SYSTEMS: GASTROINTESTINAL: Negative. GENITOURINARY: Negative. PULMONARY: As mentioned in the history of present illness. Now, negative. CONSTITUTIONAL: Negative. NEUROLOGICAL: Negative. PHYSICAL EXAMINATION: GENERAL: Shows to be a young female, in no respiratory distress. NECK: Supple. No jugular venous distention. LUNGS: Clear to auscultation. CARDIAC: Regular rate and rhythm. No heaves, thrills, or gallops noted. ABDOMEN: Soft, nontender. Positive bowel sounds. EXTREMITIES: There is no clubbing, cyanosis, or edema. NEUROLOGICAL: She is awake, alert, responsive, and in no apparent respiratory distress. LABORATORY AND DIAGNOSTIC DATA: White count of 10, hemoglobin 13.5, and a platelet count 236. Her cardiac enzymes, troponin 0.34 and 0.100, 0.058 and proBNP is only 166. Sodium 141, potassium 3.5, chloride 104, bicarb 25, BUN of 12, creatinine 0.8, and glucose of 98. Albumin is 3.3. INR was 1. PTT of 27. D-dimer of 19, almost at the time of admission. Drug screen positive for marijuana. test was negative. Echocardiogram performed today shows ejection fraction 60%. No significant other abnormalities noted on the echocardiogram and venous duplex of the lower extremities patent without any evidence of DVT. Chest x-ray when she came into the hospital was fairly unremarkable. CT angio of the chest showed extensive bilateral pulmonary emboli. No evidence of RV strain being documented. EKG, sinus rhythm, sinus tachycardia at the rate of 112. No ST or T-wave abnormalities being noted. ASSESSMENT AND PLAN: 1. Chest pain secondary to pulmonary embolism. 2. Pulmonary embolism. 3. History of estrogen use recently. 4. History of recent shoulder surgery with positive prolonged bed rest. 5. History of Chiari malformation, status post PHOTOGRAPHER LITHOGRAPHIC shunting. PLAN: Dr. Abraham, this patient was seen in cardiac consultation. The patient is doing relatively well. At the present time, she looks okay. The possible risk factors for pulmonary emboli are likely related to estrogen use as well as possibly related to prolonged bed rest. However, on detailed questioning, she seems to think that the symptoms of chest pain or shortness of breath may be related to her shoulder surgery. Therefore, the use of estrogen may be a higher likelihood of cause. Nevertheless, I am not sure if she needs any other workup for the cause of pulmonary emboli from the and as such, I would consider further evaluation if necessary. Her echocardiogram does not show any evidence of right ventricular failure. She has oral anticoagulants with use of and of note that she does not have any deep venous thrombosis on her lower extremities. could be possible contributing factors. Sherman House M.D. DR: LJ JOB#: [id number] CC:
[2018-12-10 05:51] LABS: ALANINE AMINOTRANSFERASE 10 U/L (12-78); ALBUMIN 2.9 G/DL (3.4-5.0); ALBUMIN/GLOBULIN RATIO 0.8 (1.0-2.7); ALKALINE PHOSPHATASE 86 U/L (46-116); ANION GAP 8 mmol/L (5-15); ASPARTATE AMINO TRANSFERASE 10 U/L (15-37); BILIRUBIN,TOTAL 0.1 MG/DL (0.2-1.0); BLOOD UREA NITROGEN 20 mg/dL (7-18); CALCIUM 8.7 MG/DL (8.5-10.1); CARBON DIOXIDE 29 MMOL/L (21-32); CHLORIDE 105 MMOL/L (98-107); CREATININE 0.9 MG/DL (0.55-1.30); POTASSIUM 3.8 MMOL/L (3.5-5.1); SODIUM 142 MMOL/L (136-145)
--- NOTE | 2018-12-10 06:00 | NUR ---
NURSE NOTES: Patient awake, VS remains stable no form of acute distress at this time, no chest pain now no SOB. Afebrile.
[2018-12-10] MEDS ORDERED: Morphine Sulfate 4mg/ml Inj (IV USE ONLY) IVP PRN (06:50)
--- NOTE | 2018-12-10 07:15 | NUR ---
NURSE NOTES: RECEIVED PATIENT FROM Eamon FAITH RN. PATIENT IS LYING IN BED, AWAKE, ALERT AND ORIENTED. HOOKED TO ENGINE MANAGER. ON ROOM AIR. NO SIGNS OF RESPI OR CARDIO DISTRESS OF THE MOMENT. PATIENT IS AMBULATORY. IV ON L HAND G20, SL. CALL LIGHT WITHIN REACH. BED AT LOWEST POSITION. SIDE RAILS UP. WILL CONTINUE TO MONITOR.
[2018-12-10] MEDS: Eliquis 2.5mg tablet ORAL SCH ×2 (08:06→20:23)
--- NOTE | 2018-12-10 09:46 | Pulmonology Progress Note ---
Assessment/Plan Assessment/Plan ASSESSMENT: B PE, likely provoked 2/2 recent shoulder surgery (3 wks prior) + OCP usage H/O endometriosis S/P JAXSON-BSO Chiari malformation S/P VPS Recent shoulder surgery PLAN: Continue Eliquis Will need outpatient heme F/U, anticipate @ least 3-6 months or A/C Hold off on Hypercoag w/u for now Monitor HH Should have age appropriate malignancy eval as an outpatient Subjective Allergies: Coded Allergies: No Known Allergies (Unverified , 12/07/18) Subjective AFVSS on RA Tx'd to PRECIOUS Less CP/shoulder pain, no SOB, no F/C Switched to Eliquis Objective Last 24 Hour Vital Signs Date Time Temp Pulse Resp B/P (MAP) Pulse Ox O2 Delivery O2 Flow Rate FiO2 12/10/18 08:00 97.5 106 20 104/67 (79) 98 12/10/18 06:00 76 16 121/70 (87) 95 12/10/18 05:00 74 16 125/69 (87) 94 12/10/18 04:00 74 12/10/18 04:00 98.5 81 20 112/76 (88) 94 12/10/18 04:00 Room Air 12/10/18 03:00 77 18 102/63 (76) 94 12/10/18 02:00 83 22 113/70 (84) 96 12/10/18 01:00 75 20 101/66 (78) 94 12/10/18 00:00 Room Air 12/10/18 00:00 97.9 83 17 119/65 (83) 94 12/09/18 23:00 85 18 90/68 (75) 98 12/09/18 22:00 82 19 102/71 (81) 99 12/09/18 21:00 97 22 106/75 (85) 97 12/09/18 20:00 Room Air 12/09/18 20:00 89 12/09/18 20:00 98.7 81 18 90/59 (69) 98 12/09/18 19:00 99 17 100/63 (75) 97 12/09/18 18:00 86 20 94/57 (69) 96 12/09/18 17:00 98 21 95/67 (76) 97 12/09/18 16:00 Room Air 12/09/18 16:00 102 3/27/19 16:00 98.1 80 19 110/74 (86) 100 12/09/18 15:00 92 18 106/55 (72) 98 12/09/18 14:00 107 25 99/59 (72) 95 12/09/18 13:00 85 18 101/71 (81) 97 12/09/18 12:00 97.9 80 14 99/65 (76) 99 12/09/18 12:00 Nasal Cannula 2.0 12/09/18 12:00 83 12/09/18 11:00 88 12 98/53 (68) 100 12/09/18 10:00 81 12 97/61 (73) 99 Intake and Output 12/09/18 12/10/18 18:59 06:59 Intake Total 857.100 ml 800 ml Balance 857.100 ml 800 ml Intake Oral 730 ml 800 ml IV Total 127.100 ml # Voids 2 2 General Appearance: WD/WN, no acute distress HEENT: normocephalic, atraumatic, anicteric, mucous membranes moist Respiratory/Chest: chest wall non-tender, lungs clear, normal breath sounds, no respiratory distress, no accessory muscle use Cardiovascular: normal peripheral pulses, normal rate, regular rhythm Abdomen: normal bowel sounds, soft, non tender, no organomegaly, non distended , no mass Extremities: no cyanosis, no clubbing, no edema Microbiology Date/Time Source Procedure Growth Status 12/08/18 03:27 Rectum - Final NO CARBAPENEM-RESISTANT ENTEROBACTERI... Complete 12/08/18 03:27 Rectum VRE Culture - Final NO VANCOMYCIN RESISTANT ENTEROCOCCUS ... Complete Laboratory Tests 12/09/18 11:30: Activated Partial Thromboplast Time 115H 12/10/18 04:30: Sodium Level 142, Potassium Level 3.8, Chloride Level 105, Carbon Dioxide Level 29, Anion Gap 8, Blood Urea Nitrogen 20H, Creatinine 0.9, Estimat Glomerular Filtration Rate > 60, Glucose Level 126H, Calcium Level 8.7, Total Bilirubin 0.1L, Aspartate Amino Transf (AST/SGOT) 10L, Alanine Aminotransferase (ALT/SGPT ) 10L, Alkaline Phosphatase 86, Total Protein 6.5, Albumin 2.9L, Globulin 3.6, Albumin/Globulin Ratio 0.8L Current Medications Medications (Trade) Dose Ordered Sig/Mimi Route PRN Reason Start Time Stop Time Status Last Admin Dose Admin Apixaban (Eliquis) 5 mg Q12HR ORAL 12/10/18 09:00 01/08/19 13:23 12/10/18 08:06 Docusate Sodium (Colace) 100 mg TID PRN ORAL Constipation 12/10/18 06:51 01/07/19 06:50 Morphine Sulfate (Morphine Sulfate) 3 mg Q3H PRN IVP Moderate Pain (Pain Scale 4-6) 12/10/18 06:50 12/17/18 06:49 Morphine Sulfate (Morphine Sulfate) 5 mg Q3H PRN IVP Severe Pain (Pain Scale 7-10) 12/10/18 06:50 12/17/18 06:49 Ondansetron HCl (Zofran) 4 mg Q4H PRN IVP Nausea & Vomiting 12/10/18 06:51 01/07/19 06:50 Pantoprazole (Protonix) 40 mg EVERY 12 HOURS ORAL 12/10/18 09:00 01/07/19 20:59 12/10/18 08:06 Ken Lorenzo MD Dec 10, 2018 09:45
[2018-12-10] MEDS: Morphine Sulfate 2mg/ml Inj(IV/IM USE ONLY) IVP PRN ×2 (10:32→23:45)
[2018-12-10] MEDS: Docusate 100mg cap ORAL PRN ×2 (10:34→23:44)
--- NOTE | 2018-12-10 12:39 | General Progress Note ---
Assessment/Plan Problem List: (1) Pulmonary emboli ICD Codes: I26.99 - Other pulmonary embolism without acute cor pulmonale SNOMED: 95793092 (2) Chest pain ICD Codes: R07.9 - Chest pain, unspecified SNOMED: 81952824 (3) Elevated troponin ICD Codes: R74.8 - Abnormal levels of other serum enzymes SNOMED: 392939305, 269231344, 491522873 Assessment/Plan po Eliquis pain meds Dc in AM Subjective Allergies: Coded Allergies: No Known Allergies (Unverified , 12/07/18) Subjective still with CP Objective Last 24 Hour Vital Signs Date Time Temp Pulse Resp B/P (MAP) Pulse Ox O2 Delivery O2 Flow Rate FiO2 12/10/18 09:00 Room Air 12/10/18 08:00 97.5 106 20 104/67 (79) 98 12/10/18 08:00 76 12/10/18 06:00 76 16 121/70 (87) 95 12/10/18 05:00 74 16 125/69 (87) 94 12/10/18 04:00 74 12/10/18 04:00 98.5 81 20 112/76 (88) 94 12/10/18 04:00 Room Air 12/10/18 03:00 77 18 102/63 (76) 94 12/10/18 02:00 83 22 113/70 (84) 96 12/10/18 01:00 75 20 101/66 (78) 94 12/10/18 00:00 Room Air 12/10/18 00:00 97.9 83 17 119/65 (83) 94 12/09/18 23:00 85 18 90/68 (75) 98 12/09/18 22:00 82 19 102/71 (81) 99 12/09/18 21:00 97 22 106/75 (85) 97 12/09/18 20:00 Room Air 12/09/18 20:00 89 12/09/18 20:00 98.7 81 18 90/59 (69) 98 12/09/18 19:00 99 17 100/63 (75) 97 12/09/18 18:00 86 20 94/57 (69) 96 12/09/18 17:00 98 21 95/67 (76) 97 12/09/18 16:00 Room Air 12/09/18 16:00 102 12/09/18 16:00 98.1 80 19 110/74 (86) 100 12/09/18 15:00 92 18 106/55 (72) 98 12/09/18 14:00 107 25 99/59 (72) 95 12/09/18 13:00 85 18 101/71 (81) 97 Intake and Output 12/09/18 12/10/18 18:59 06:59 Intake Total 857.100 ml 800 ml Balance 857.100 ml 800 ml Intake Oral 730 ml 800 ml IV Total 127.100 ml # Voids 2 2 Laboratory Tests 12/10/18 04:30: Sodium Level 142, Potassium Level 3.8, Chloride Level 105, Carbon Dioxide Level 29, Anion Gap 8, Blood Urea Nitrogen 20H, Creatinine 0.9, Estimat Glomerular Filtration Rate > 60, Glucose Level 126H, Calcium Level 8.7, Total Bilirubin 0.1L, Aspartate Amino Transf (AST/SGOT) 10L, Alanine Aminotransferase (ALT/SGPT ) 10L, Alkaline Phosphatase 86, Total Protein 6.5, Albumin 2.9L, Globulin 3.6, Albumin/Globulin Ratio 0.8L Height (Feet): 5 Height (Inches): 4.00 Weight (Pounds): 139 Cardiovascular: normal rate Respiratory/Chest: lungs clear Berto Abraham MD Dec 10, 2018 12:39
--- NOTE | 2018-12-10 12:41 | NUR ---
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
--- NOTE | 2018-12-10 15:32 | NUR ---
NURSE NOTES: SEEN FAMILY MEMBER AT THE BEDSIDE. PATIENT IS RESTING IN BED. NO SIGS OF DISTRESS. WILL CONTINUE TO MONITOR.
--- NOTE | 2018-12-10 16:17 | NUR ---
*-* INSURANCE *-* CLINICALS HAVE BEEN FAXED TO: [facility] PLEASE FAX THE REVIEW/CLINICAL FX: [phone]
--- NOTE | 2018-12-10 19:22 | NUR ---
HAND-OFF: Report given to Monica Conrad RN.
--- NOTE | 2018-12-10 19:23 | NUR ---
NURSE NOTES: Received a bedside report from TOMEKA Mckeon.Patient stable,A&Ox4,no c/o pain,no respiratory distress noted,tolerated r/air well,IV on L hand 20G SL asymptomatic,intact,BS active in all quadrants,patient ambulatory stable,family at a bedside,will continue to monitor and follow POC.
--- NOTE | 2018-12-10 20:59 | Cardiology Progress Note ---
Assessment/Plan Assessment/Plan 1. Chest pain secondary to pulmonary embolism. 2. Pulmonary embolism. 3. History of estrogen use for sarah pat 18 mon 4. History of recent shoulder surgery with positive prolonged bed rest. 5. History of Chiari malformation, status post FUR PLUCKER shunting trop related to pulm embolism looking good tele sinus on oral anticoagualtion home soon Subjective Cardiovascular: Denies: chest pain, lightheadedness, palpitations Respiratory: Denies: shortness of breath Gastrointestinal/Abdominal: Denies: abdominal pain Genitourinary: Denies: burning Objective Last 24 Hour Vital Signs Date Time Temp Pulse Resp B/P (MAP) Pulse Ox O2 Delivery O2 Flow Rate FiO2 12/10/18 16:00 97.0 79 20 115/73 (87) 96 12/10/18 16:00 83 12/10/18 12:00 97.7 74 20 104/63 (77) 97 12/10/18 11:49 79 12/10/18 09:00 Room Air 12/10/18 08:00 97.5 106 20 104/67 (79) 98 12/10/18 08:00 76 12/10/18 06:00 76 16 121/70 (87) 95 12/10/18 05:00 74 16 125/69 (87) 94 12/10/18 04:00 74 12/10/18 04:00 98.5 81 20 112/76 (88) 94 12/10/18 04:00 Room Air 12/10/18 03:00 77 18 102/63 (76) 94 12/10/18 02:00 83 22 113/70 (84) 96 12/10/18 01:00 75 20 101/66 (78) 94 12/10/18 00:00 Room Air 12/10/18 00:00 97.9 83 17 119/65 (83) 94 12/09/18 23:00 85 18 90/68 (75) 98 12/09/18 22:00 82 19 102/71 (81) 99 12/09/18 21:00 97 22 106/75 (85) 97 General Appearance: no apparent distress, alert Neck: supple Cardiovascular: regular rhythm Respiratory/Chest: lungs clear Abdomen: normal bowel sounds, non tender, soft Extremities: no swelling Intake and Output 12/09/18 12/10/18 19:00 07:00 Intake Total 1036.489 ml 600 ml Balance 1036.489 ml 600 ml Intake Oral 930 ml 600 ml IV Total 106.489 ml # Voids 2 2 Laboratory Tests Test 12/10/18 04:30 Sodium Level 142 MMOL/L (136-145) Potassium Level 3.8 MMOL/L (3.5-5.1) Chloride Level 105 MMOL/L (98-107) Carbon Dioxide Level 29 MMOL/L (21-32) Anion Gap 8 mmol/L (5-15) Blood Urea Nitrogen 20 mg/dL (7-18) H Creatinine 0.9 MG/DL (0.55-1.30) Estimat Glomerular Filtration Rate > 60 mL/min (>60) Glucose Level 126 MG/DL (74-106) H Calcium Level 8.7 MG/DL (8.5-10.1) Total Bilirubin 0.1 MG/DL (0.2-1.0) L Aspartate Amino Transf (AST/SGOT) 10 U/L (15-37) L Alanine Aminotransferase (ALT/SGPT) 10 U/L (12-78) L Alkaline Phosphatase 86 U/L (46-116) Total Protein 6.5 G/DL (6.4-8.2) Albumin 2.9 G/DL (3.4-5.0) L Globulin 3.6 g/dL Albumin/Globulin Ratio 0.8 (1.0-2.7) L Microbiology Date/Time Source Procedure Growth Status 12/08/18 03:27 Nasal Nares MRSA Culture - Final NO METHICILLIN RESISTANT STAPH AUREUS... Complete 12/08/18 03:27 Rectum - Final NO CARBAPENEM-RESISTANT ENTEROBACTERI... Complete 12/08/18 03:27 Rectum VRE Culture - Final NO VANCOMYCIN RESISTANT ENTEROCOCCUS ... Complete Sherman House MD Dec 10, 2018 20:59
[2018-12-11] VITALS: BP 105/64
[2018-12-11 04:00] VITALS: BP 108/67
--- NOTE | 2018-12-11 07:10 | NUR ---
HAND-OFF: Report given to TOMEKA Romano.Patient stable.
--- NOTE | 2018-12-11 07:15 | NUR ---
NURSE NOTES: Report received from Kati Conrad RN.Pt sitting up on bed awake,alert denies any c/o SOB or discomfort,SR on the monitor,IV site to LH intact, skin warm and dry SR up x2 call henderson at bedside,HOB elevated ,bed lock in lowest position,will continue with plans of care.
[2018-12-11 08:00] VITALS: BP 100/62
[2018-12-11] MEDS: Eliquis 2.5mg tablet ORAL SCH (08:35)
--- NOTE | 2018-12-11 09:29 | Pulmonology Progress Note ---
Assessment/Plan Assessment/Plan ASSESSMENT: B PE, likely provoked 2/2 recent shoulder surgery (3 wks prior) + OCP usage H/O endometriosis S/P JAXSON-BSO Chiari malformation S/P VPS Recent shoulder surgery PLAN: Continue Eliquis Will need outpatient heme F/U, anticipate @ least 3 months of A/C Hold off on Hypercoag w/u for now Monitor HH No more OCPs Should have age appropriate malignancy eval as an outpatient dc planning Subjective ROS Limited/Unobtainable: No Interval Events: denies chest pain or shortness of breath. Plans to go home today. Constitutional: Reports: no symptoms Respiratory: Reports: no symptoms Cardiovascular: Reports: no symptoms Gastrointestinal/Abdominal: Reports: no symptoms Allergies: Coded Allergies: No Known Allergies (Unverified , 12/07/18) Objective Last 24 Hour Vital Signs Date Time Temp Pulse Resp B/P (MAP) Pulse Ox O2 Delivery O2 Flow Rate FiO2 12/11/18 08:00 97.5 69 18 100/62 (75) 95 12/11/18 04:00 97.5 78 18 108/67 (81) 99 12/11/18 03:38 89 12/11/18 00:00 97.7 76 18 105/64 (78) 100 12/10/18 23:38 85 12/10/18 21:00 Room Air 12/10/18 20:00 98.1 90 18 111/67 (82) 98 12/10/18 19:10 86 12/10/18 16:00 97.0 79 20 115/73 (87) 96 12/10/18 16:00 83 12/10/18 12:00 97.7 74 20 104/63 (77) 97 12/10/18 11:49 79 Intake and Output 12/10/18 12/11/18 18:59 06:59 Intake Total 500 ml 240 ml Balance 500 ml 240 ml Intake Oral 500 ml 240 ml # Voids 3 2 General Appearance: WD/WN, no acute distress HEENT: mucous membranes moist Respiratory/Chest: lungs clear Cardiovascular: normal rate, regular rhythm Abdomen: soft, non tender Extremities: no edema Neurologic/Psychiatric: 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-XII grossly normal, oriented x 3 Current Medications Medications (Trade) Dose Ordered Sig/Mimi Route PRN Reason Start Time Stop Time Status Last Admin Dose Admin Apixaban (Eliquis) 5 mg Q12HR ORAL 12/10/18 09:00 01/08/19 13:23 12/11/18 08:35 Docusate Sodium (Colace) 100 mg TID PRN ORAL Constipation 12/10/18 06:51 01/07/19 06:50 12/10/18 23:44 Morphine Sulfate (Morphine Sulfate) 3 mg Q3H PRN IVP Moderate Pain (Pain Scale 4-6) 12/10/18 06:50 12/17/18 06:49 12/10/18 23:45 Morphine Sulfate (Morphine Sulfate) 5 mg Q3H PRN IVP Severe Pain (Pain Scale 7-10) 12/10/18 06:50 12/17/18 06:49 Ondansetron HCl (Zofran) 4 mg Q4H PRN IVP Nausea & Vomiting 12/10/18 06:51 01/07/19 06:50 Pantoprazole (Protonix) 40 mg EVERY 12 HOURS ORAL 12/10/18 09:00 01/07/19 20:59 12/11/18 08:35 Dong Junior MD Dec 11, 2018 09:29
[2018-12-11 12:00] VITALS: BP 99/67
[2018-12-11] MEDS: Docusate 100mg cap ORAL PRN (12:11)
[2018-12-11] MEDS: Morphine Sulfate 2mg/ml Inj(IV/IM USE ONLY) IVP PRN (12:13)
--- NOTE | 2018-12-11 12:15 | NUR ---
NURSE NOTES: pt sitting up on bed c/o pain to lt chestwall requested for pain medic TLX12po IV and Colace 100 mg po,medications given,will continue to monitor pt.
--- NOTE | 2018-12-11 12:50 | NUR ---
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
--- NOTE | 2018-12-11 14:09 | General Progress Note ---
Assessment/Plan Problem List: (1) Pulmonary emboli ICD Codes: I26.99 - Other pulmonary embolism without acute cor pulmonale SNOMED: 42074400 (2) Chest pain ICD Codes: R07.9 - Chest pain, unspecified SNOMED: 17654646 (3) Elevated troponin ICD Codes: R74.8 - Abnormal levels of other serum enzymes SNOMED: 875907390, 708063901, 798047142 Assessment/Plan po Eliquis Dc today Subjective Allergies: Coded Allergies: No Known Allergies (Unverified , 12/07/18) Subjective better Objective Last 24 Hour Vital Signs Date Time Temp Pulse Resp B/P (MAP) Pulse Ox O2 Delivery O2 Flow Rate FiO2 12/11/18 12:00 97.7 74 20 99/67 (78) 97 12/11/18 11:48 84 12/11/18 09:00 Room Air 12/11/18 08:00 97.5 69 18 100/62 (75) 95 12/11/18 07:53 77 12/11/18 04:00 97.5 78 18 108/67 (81) 99 12/11/18 03:38 89 12/11/18 00:00 97.7 76 18 105/64 (78) 100 12/10/18 23:38 85 12/10/18 21:00 Room Air 12/10/18 20:00 98.1 90 18 111/67 (82) 98 12/10/18 19:10 86 12/10/18 16:00 97.0 79 20 115/73 (87) 96 12/10/18 16:00 83 Intake and Output 12/10/18 12/11/18 18:59 06:59 Intake Total 500 ml 240 ml Balance 500 ml 240 ml Intake Oral 500 ml 240 ml # Voids 3 2 Height (Feet): 5 Height (Inches): 4.00 Weight (Pounds): 149 Cardiovascular: normal rate Edema: no edema noted Berto Vickers MD Dec 11, 2018 14:09
[2018-12-11] MEDS ORDERED: ELIQUIS2.5 MG ORAL (14:10)
--- NOTE | 2018-12-11 14:15 | NUR ---
NURSE NOTES: Dr Berto Abraham here and seen pt,verbal order for discharge given to bulldozer/loader/compactor/scraper Linda Maher.
--- NOTE | 2018-12-11 15:30 | NUR ---
NURSE NOTES: Discharge instructions given by Linda ECKERT,verbalized understanding .Pt discharged and out of the unit per WC awake,alert oriented in no resp distress.IV HL to LT FA removed ,skin site intact .
--- NOTE | 2018-12-14 12:50 | Discharge Summary ---
Discharge Summary Discharge Summary _ DATE OF ADMISSION: 12/08/2018 DATE OF DISCHARGE: 12/11/2018 DISCHARGED BY: Dr. Abraham REASON FOR ADMISSION: 46 years old female with past medical history of Chiari malformation, endometriosis, status post JAXSON-BSO, recent shoulder surgery, presented to emergency department with complaint of chest pain or shortness of breath. Patient reported being on oral contraceptive medication. Patient reported palpitation. For last several day. Pain was associated with a palpitation and became more significant patient also felt more short of breath and she presented to emergency room for evaluation. She denied vomiting or diarrhea. She denies any traveling. She denies any cough or pain swelling. Upon evaluation patient was tachycardic with heart rate 136. Pulse oximetry was stable on room air. CT angiogram of the chest revealed extensive bilateral pulmonary emboli. No CT evidence of right heart strain. Laboratory workup revealed no leukocytosis stable hemoglobin hematocrit. Chemistry revealed potassium 3.3. Glucose 125. Troponin elevated 0.512. Chest x-ray revealed no acute cardiopulmonary pathology patient was admitted to stepdown unit for further management CONSULTANTS: lithopone charger Dr. House neurologist pulmonary Dr. Maura GE specialist GI specialist dinkey operator gm video/oncologist surgery psychiatrist HOSPITAL COURSE: Patient admitted to direct observational unit and started on heparin drip. Cardiology and pulmonology consults were requested. Supplemental oxygen provided as needed to keep pulse oximetry above 92%. Pulmonary toilet provided as needed. Venous duplex bilateral lower extremity revealed no evidence of acute DVT. Serial troponin trending down from 0.512 initial down to 0.058. Echocardiogram revealed preserved ejection fraction of 60%. No evidence of wall motion abnormality. Mild left ventricular hypertrophy. No evidence of pericardial effusion. Right ventricular systolic pressure of 11. Per lithopone charger , chest pain was secondary to pulmonary emboli. Elevated troponin was related to pulmonary emboli. Patient demonstrated sinus rhythm on monitor. Per prospecting driller , bilateral pulmonary emboli were likely secondary to recent shoulder surgery 3 weeks ago combined with oral contraceptive use. Patient was initially on heparin drip and then switched to oral Eliquis. Patient will need outpatient follow-up with gm video. Patient was explained that she will need at least 3 months of anticoagulation. Patient was recommended hypercoagulability workup as outpatient along with appropriate age-related malignancy evaluation. Patient was instructed to stop oral contraceptive medication. Hemoglobin and hematocrit were closely monitored with goal to keep hemoglobin above 7. Hemoglobin hematocrit remained at the baseline, very stable . Prior to discharge hemoglobin 13.5 ,hematocrit 40.3. Pain management was addressed. GI prophylaxis provided. Supportive care provided. Bowel regimen instituted. Patient was cleared for discharge with outpatient follow-up with gm video/ oncologist. FINAL DIAGNOSES: Bilateral pulmonary emboli,- likely secondary to recent shoulder surgery and oral contraceptive use Chest pain -related to pulmonary emboli Elevated troponin - related to pulmonary emboli- trending down Chiari malformation , status post ventriculoperitoneal shunt History of endometriosis, status post JAXSON-BSO Recent shoulder surgery DISCHARGE MEDICATIONS: See Medication Reconciliation list. DISCHARGE INSTRUCTIONS: Patient was discharged home. Follow up with primary care provider in one week. I have been assigned to dictate discharge summary for this account. I was not involved in the patient's management. Sally Cordova NP Dec 14, 2018 12:50
== END 2018-12-11 15:30 | disposition home or self-care (01) | DRG 176 ==
LOC: EMR 22:18 → ICU 12-08 01:36 → EDBEDREQ 12-08 02:02 → 2W 12-10 06:43
DX: I26.99 Other pulmonary embolism without acute cor pulmonale (principal); Q07.02 Arnold-Chiari syndrome with hydrocephalus; Z98.2 Presence of cerebrospinal fluid drainage device; Z79.890 Hormone replacement therapy
CPT/HCPCS: 36415; 71045; 71275; 80053; 80307; 81025; 82550; 82553; 83690; 83880; 84484; 85025; 85379; 85610; 85730; 87081; 93005; 93306; 93970; 94760; 96372; 96374; 96375; 99291; J2405